=== PATIENT | female | born 1985 | race Two or more races ===

== ENCOUNTER 2019-01-26 20:35 | Emergency (ER) | payer BC ==
[2019-01-26 22:53] LABS: APPEARANCE,URINE CLEAR; BILIRUBIN,URINE NEGATIVE (NEGATIVE); COLOR,URINE STRAW; GLUCOSE, URINE NEGATIVE (NEGATIVE); KETONES,URINE NEGATIVE (NEGATIVE); LEUKOCYTE ESTERASE,URINE TRACE (NEGATIVE); NITRITE,URINE NEGATIVE (NEGATIVE); PROTEIN,URINE NEGATIVE (NEGATIVE); URINE SPECIFIC GRAVITY 1.008; UROBILINOGEN,URINE NEGATIVE mg/dL (<2.0)
--- NOTE | 2019-01-26 23:08 | ER Document Report ---
HPI - HPI Time Seen by Provider: 01/26/19 22:56 Pain Level: 3 Context: Patient is a 33-year-old female that comes to the emergency department for chief complaint of discomfort with urination, cramping and pain in the mid lower abdomen, and a small amount of pain intermittently in her lower back on the right side. She denies injury. She denies fever/chills, vomiting, states she has a very vague nausea earlier. She denies vaginal bleeding or discharge. She denies any daily medications or diagnosed medical history, only past medical history reported is a LEEP procedure. - REPRODUCTIVE Reproductive: DENIES: : Past Medical History - General Information source: Patient - Social History Smoking Status: Never Smoker Frequency of alcohol use: None Drug Abuse: None Lives with: Family Family History: Reviewed & Not Pertinent - Medical History Medical History: Negative Surgical Hx: Negative - Immunizations Immunizations up to date: Yes Hx Diphtheria, Pertussis, Tetanus Vaccination: Yes Vertical Provider Document - CONSTITUTIONAL General Appearance: WD/WN, No Apparent Distress - INFECTION CONTROL TRAVEL OUTSIDE OF THE [place] IN LAST 30 DAYS: No - HEENT HEENT: Atraumatic, Normocephalic - NECK Neck: Normal Inspection - RESPIRATORY Respiratory: Breath Sounds Normal, No Respiratory Distress - CARDIOVASCULAR Cardiovascular: Regular Rate, Regular Rhythm - GI/ABDOMEN Gastrointestinal: Abdomen Soft. negative: Abdomen Non-Tender - Mild generalized lower abdominal tenderness, nonspecific, no guarding - REPRODUCTIVE Female Genitalia: negative: Normal Inspection - External exam unremarkable, speculum exam showing large amount of vaginal discharge, tenderness on exam which is moderate, erythema of the cervix. No lesions. No bleeding. Unrema rkable otherwise. Exam performed with Nida CHAVARRIA at bedside. - BACK Back: Normal Inspection - MUSCULOSKELETAL/EXTREMETIES Musculoskeletal/Extremeties: MAEW, FROM, Non-Tender - NEURO Level of Consciousness: Awake, Alert, Appropriate Motor/Sensory: No Motor Deficit, No Sensory Deficit - DERM Integumentary: Warm, Dry, No Rash Course - Re-evaluation Re-evalutation: Patient does have some suprapubic and pelvic tenderness. There is no guarding. Patient is very well-appearing. Vital signs unremarkable. Urine does have a few white blood cells but does not appear to be grossly infected. She has no CVA tenderness or back tenderness on exam. The location of complaint appears to be muscular skeletal. No neurological deficits, no concerning reported history including IV drug abuse. No fever. Pelvic exam was performed, shows moderately large amount of discharge and a lot of tenderness with some erythema of the cervix. There only some white blood cells on pelvic exam, however presentation is most consistent with pelvic infection. Discussed with patient, she was treated with azithromycin, Rocephin, and she will be treated at home with Keflex. She request Diflucan for after the antibiotics. Patient had been given Percocet, Zofran as well, she started having muscle jerking suggesting dystonic reaction possibly from the Zofran. She was given Benadryl. Afterwards she was improved. Recommended she not take Zofran in the future. Stable at time of discharge. - Vital Signs Vital signs: Temp Pulse Resp BP Pulse Ox 98.3 F 98 16 128/72 H 99 01/26/19 20:41 01/26/19 20:41 01/26/19 20:41 01/26/19 20:41 01/26/19 20:41 - Laboratory Laboratory results interpreted by me: 01/26/19 22:26 Urine Blood SMALL H Ur Leukocyte Esterase TRACE H Discharge - Discharge Clinical Impression: Pelvic pain, Dysuria Condition: Stable Disposition: HOME, SELF-CARE Additional Instructions: Your evaluation is consistent with a pelvic infection. Complete antibiotics at home, after you complete the antibiotic take the Diflucan to avoid yeast infection. Rest, drink plenty fluids, symptoms should resolve. Follow-up with primary care. Return if you worsen including severe worsening pain, fever, vomiting, or any other concerning symptoms. Prescriptions: Fluconazole [Diflucan] 150 mg PO ONCE PRN #1 tablet PRN Reason: Cephalexin Monohydrate [Keflex 500 mg Capsule] 500 mg PO BID 7 Days #14 capsule Forms: Return to Work Referrals: LOCALMD,NO [Primary Care Provider] - Follow up as needed
[2019-01-26] MEDS ORDERED: OXYCODONE-ACETAMINOPHEN 5-325 MG TABLET PO ONE (23:24)
[2019-01-26] MEDS ORDERED: ONDANSETRON 4 MG TAB.RAPDIS PO ONE (23:24)
[2019-01-26 23:38] LABS: RBCS (WET MOUNT) NO RBCS SEEN; T.VAGINALIS (WET MOUNT) NO TRICHOMONAS SEEN; WBCS (WET MOUNT) FEW WBCS SEEN; YEAST (WET MOUNT) NO YEAST SEEN
[2019-01-26] MEDS ORDERED: CEFTRIAXONE INJ 250 MG VIAL IM ONE (23:41)
[2019-01-26] MEDS ORDERED: LIDOCAINE 1% INJ-PF (10 MG/ML) 30 ML SDV INJ ONE (23:41)
[2019-01-26] MEDS ORDERED: AZITHROMYCIN 250 MG TABLET PO ONE (23:41)
[2019-01-27] MEDS ORDERED: DIPHENHYDRAMINE HCL 50 MG/ML VIAL IM ONE (01:07)
[2019-01-27 01:09] LABS: CHLAM PCR NOT DETECTED (NOT DETECT)
[2019-01-27 02:15] VITALS: BP 101/62
== END 2019-01-27 02:15 | disposition home or self-care (01) ==
LOC: ER 20:35
DX: R30.0 Dysuria (principal); R10.2 Pelvic and perineal pain; R10.30 Lower abdominal pain, unspecified; R11.0 Nausea
CPT/HCPCS: 87210; 81025; 81001; 87491; 87591; S0119; J0696; J1200; J3490

== ENCOUNTER → 2020-01-13 | Outpatient (CLI) | payer OTHER ==
--- NOTE | 2020-01-13 12:13 | ER RDC ASSESSMENT REPORT ---
Intake - In the Last 14 days Have you traveled outside [place]?: No Have you been in close contact with someone CONFIRMED: No Worked in Healthcare?: No - Symptoms Subjective Fever([place] feverish): Yes Chills: Yes Muscule Aches: Yes Runny Nose: No Sore Throat: Yes Cough (New or worsening chronic cough): Yes Shortness of breath: No Nausea or Vomiting: No Headache: No Abdominal Pain: No Diarrhea(3 or more loose stools in last 24 hours): No - Do you have any of the following Chronic lung disease: Asthma or emphysema or COPD: No Cystic Fibrosis: No Diabetes: No High Blood Pressure: No Cardiovascular Disease: No Chronic Kidney Disease: No Chronic Liver Disease: No Chronic blood disorder like Sickle Cell Disease: No Weak immune system due to disease or medication: No Neurologic condition that limits movement: No Developmental delay - Moderate to Severe: No Recent (within past 2 weeks) or current : No Morbid Obesity (>100 pounds over ideal weight): No Obesity Comment: Height 5 3 weight 127 pounds. - Objective Temperature: 97.4 F Pulse Rate: 85 Respiratory Rate: 18 Blood Pressure: 108/61 O2 Sat by Pulse Oximetry: 100 Objective: Given above, testing performed: If Testing Performed: Test Specimen Type Sent to General - General Information source: Patient Notes: Patient here at [facility] for COVID testing. 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 Patient started to have symptoms of feeling like a fever chills muscle aches sore throat and cough. Does not have a local PCP. - Related Data Allergies/Adverse Reactions: ondansetron [From Zofran] Adverse Reaction (Intermediate, Verified 01/27/19 02:15) tremor Past Medical History - General Information source: Patient - Social History Smoking Status: Never Smoker Family History: Reviewed & Not Pertinent Renal/ Medical History: Denies: Hx Peritoneal Dialysis Physical Exam - General General appearance: Appears well, Alert In distress: None Notes: PHYSICAL EXAMINATION: GENERAL: Well-appearing and in no acute distress. HEAD: Atraumatic, normocephalic. EYES: sclera anicteric, conjunctiva are normal. ENT: nares patent. Moist mucous membranes. NECK: Normal range of motion, supple without lymphadenopathy LUNGS: CTAB and equal. No wheezes rales or rhonchi. Respirations even and unlabored. Lung sounds clear HEART: Regular rate and rhythm without murmurs ABDOMEN: Soft, nontender, normal bowel sounds, no guarding. EXTREMITIES: No cyanosis. NEUROLOGICAL: Normal speech. PSYCH: Normal mood, normal affect. SKIN: Warm, Dry, normal turgor Diagnostic Results Laboratory Results: Patient informed of negative rapid strep results. Pending strep culture pending cover testing results. Patient provided instructions regarding code to include: As a person under investigation for Covid 19, the [facility] of Health and Human Services, division of public health advises you to adhere to the following guidance until your test results are reported to you. If your test result is positive, you will receive additional information from your provider and your local health department at that time. Remain at home until you are cleared by the health provider or public health authorities. Keep a log of visitors to your home, notify any visitors to your home of your isolation status. If you plan to move to a new address or leave the county, notify the local health department in your County. Call your doctor or seek care if you have an urgent medical need. Before seeking medical care, call ahead to get instructions from the provider before arriving at the medical office clinic or hospital. Notify them that you are being tested for the virus that causes Covid 19 so that arrangements can be made, as necessary, to prevent transmission to others in the healthcare setting. Next, notify the local health department in your county. If a medical emergency arises and you need to call 911, inform the first responders that you are being tested for the virus that causes Covid 19. Next, notify the local health department in your county. Patient Education/Counseling Counseling/Education: Patient presents with upper respiratory symptoms worrisome for possible Covid 19. Patient does not have emergency worring symptoms such as difficulty breathing, shortness of breath, chest pain, pressure, confusion or cyanosis. Patient appears suitable for discharge. Instructed to follow-up with urgent care or to ED for persistent or worsening symptoms. Patient's vital signs are stable and patient is nontoxic in appearance. Good return precautions have been discussed with patient, patient verbalized understanding and is agreeable with discharge plan of care at this time. RDC Discharge - Discharge Condition: Stable Disposition: Home; Selfcare
[2020-01-13 12:14] VITALS: BP 108/61
== END ==
LOC: RDC 11:26
PROVIDERS: ATTEND Nurse Practitioner Family
DX: Z20.828 Contact with and (suspected) exposure to other viral communicable diseases (principal); R50.9 Fever, unspecified; J02.9 Acute pharyngitis, unspecified; R05 Cough; M79.10 Myalgia, unspecified site; Z88.8 Allergy status to other drugs, medicaments and biological substances
CPT/HCPCS: 87070; 87880; 87635; C9803; 99201; 99211